=== PATIENT | male | born 1975 | race African-American/Black ===

== ENCOUNTER 2018-03-02 11:45 | Outpatient (CLI) | payer OTHER ==
--- NOTE | 2018-03-02 13:20 | RAD ---
THREE VIEWS LUMBAR SPINE: Date: 03-02-18 History: Disability evaluation. FINDINGS: There are five non-rib bearing lumbar type vertebral bodies. Vertebral body heights and intervertebra l disc spaces are within normal limits. Interval osteophyte is seen anteriorly involving the l3 verte bral body. No fracture or subluxation is seen involving the lumbar spine. A calcification overlies th e right hemipelvis, probably related to a phlebolith. IMPRESSION: No acute osseous abnormality involving the lumbar spine. Vertebral body heights are within normal rivera its. POS: [facility]
== END 2018-03-02 11:46 | disposition home or self-care (01) ==
LOC: NAV RAD 11:45
PROVIDERS: ATTEND Family Medicine
DX: M54.5 Low back pain (principal)
CPT/HCPCS: 72100